=== PATIENT | female | born 1955 | race Two or more races ===

== ENCOUNTER 2021-01-22 08:47 | Outpatient (REF) | payer MEDICARE, SELFPAY ==
--- NOTE | ~2021-01-22 | MM_ITS ---
EXAMINATION: MM SCREENING DIGITAL BREAST TOMOSYNTHESIS, BILATERAL CLINICAL INFORMATION: Screening. Asymptomatic. The lifetime risk of breast cancer based on the Tyrer-Cuzick Model is 4%. COMPARISON: Outside mammography: 02/09/2019, 01/27/2018, 05/15/2016 ([facility]). TECHNIQUE: Digital breast tomosynthesis is performed in both the craniocaudal and mediolateral oblique views along with computer-aided detection (CAD). Synthesized 2D images are generated from the tomosynthesis. FINDINGS: There are scattered areas of fibroglandular density (ACR BI-RADS breast composition Category b). Breast tissue borders on predominantly fatty. Background stromal and fibroglandular densities are stable. There is no interval mass or architectural abnormality or abnormal calcifications. The axilla and skin contours are unremarkable. MM/MM tomosynthesis screening BI IMPRESSION: No mammographic evidence of malignancy. ASSESSMENT: BI-RADS 1: Negative RECOMMENDATION: Routine annual mammography screening. This patient's information was entered into a reminder system with a target due date for their next mammogram.
== END 2021-01-22 08:48 | disposition home or self-care (01) ==
LOC: HO.MAMMO 08:47
PROVIDERS: Visit Provider Internal Medicine
DX: Z12.31 Encounter for screening mammogram for malignant neoplasm of breast (principal)
CPT/HCPCS: 77063; 77067

== ENCOUNTER 2021-04-02 10:30 | Outpatient (REF) | payer MEDICARE, SELFPAY ==
--- NOTE | ~2021-04-02 | MM_ITS ---
EXAMINATION: BONE DENSITOMETRY CLINICAL INDICATION: Screening for osteoporosis. COMPARISON: None (current study represents initial baseline exam). TECHNIQUE: Using a [employer] DXA System (software version: 13.1) manufactured by [employer], dual-energy x-ray absorptiometry was performed of the lumbar spine and left hip. The images are of good technical quality. Summary results are attached. FINDINGS: AP SPINE L1-L4: BMD 1.035 g/cm2, Z-score -0.5, T-score -1.2, osteopenia. LEFT FEMUR, NECK: BMD 0.816 g/cm2, Z-score -0.7, T-score -1.6, osteopenia. LEFT FEMUR, TOTAL: BMD 0.893 g/cm2, Z-score -0.3, T-score -0.9, normal. IDENTIFIED RISK FACTORS: Menopause. HISTORY OF FRACTURE: None listed. MEDICATIONS: Calcium supplements or multivitamin, vitamin D. MM/XR DEXA axial skeleton IMPRESSION: 1. DIAGNOSIS: Osteopenia based on the lowest T-score value of -1.6 in the femoral neck applying World Health Organization criteria. 2. 10-YEAR FRACTURE RISK PREDICTION, FRAX: Major osteoporotic fracture (clinical spine, forearm, hip or shoulder) 4.9%. Hip fracture 0.6%. 3. Treatment Recommendations: NOF guidelines recommend consideration for treatment in postmenopausal women and men age 50 and older presenting with the following: -A hip or vertebral (clinical or morphometric) fracture. -T-score less than or equal to -2.5 at the femoral neck or spine after appropriate evaluation to exclude secondary causes. -Low bone mass at the hip or spine and a 10-year fracture probability by FRAX of greater than or equal to 3% for hip fracture or greater than or equal to 20% for major osteoporotic fracture based on the [place] adapted WHO algorithm. 4. Other Recommendations: All treatment decisions require clinical judgment and consideration of individual patient factors, including patient preferences, comorbidities, previous drug use, risk factors not captured in the FRAX model (e.g. frailty, falls, vitamin D deficiency, increased bone turnover, interval significant decline in bone density) and possible under or overestimation of fracture risk by FRAX. Additional medical evaluation for secondary cause of low bone mineral density may be appropriate. FUTURE SCAN RECOMMENDATION: People with diagnosed cases of osteoporosis or at high risk for fracture should have regular bone mineral density tests. For patients eligible for Medicare, routine testing is allowed once every 2 years. The testing frequency can be increased to one year for patients who have rapidly progressing disease, those who are receiving or discontinuing medical therapy to restore bone mass, or have additional risk factors.
== END 2021-04-02 10:31 | disposition home or self-care (01) ==
LOC: HO.MAMMO 10:30
PROVIDERS: PCP Internal Medicine; Visit Provider Internal Medicine
DX: Z13.820 Encounter for screening for osteoporosis (principal); M85.80 Other specified disorders of bone density and structure, unspecified site; Z78.0 Asymptomatic menopausal state; Z79.899 Other long term (current) drug therapy
CPT/HCPCS: 77080

== ENCOUNTER 2023-06-07 10:12 | Outpatient (REF) | payer MEDICARE, SELFPAY ==
[2023-06-09 21:13] LABS: TS Negative Control Passed; TS Panel A 0; TS Panel B 0; TS Positive Control Passed; TSpotTB Negative (Negative)
== END 2023-06-07 10:13 | disposition home or self-care (01) ==
LOC: HO.CHCLDS 10:12
PROVIDERS: Visit Provider Internal Medicine
DX: Z11.1 Encounter for screening for respiratory tuberculosis (principal)
CPT/HCPCS: 36415; 86481

== ENCOUNTER 2023-08-05 08:47 | Outpatient (REF) | payer MEDICARE, SELFPAY | END 2023-08-05 08:48 | disposition home or self-care (01) | LOC: HO.CHCLDS 08:47 | PROVIDERS: Visit Provider Internal Medicine | DX: I10 Essential (primary) hypertension (principal); E03.9 Hypothyroidism, unspecified; E78.2 Mixed hyperlipidemia | CPT/HCPCS: 36415; 80053; 80061; 83540; 84443; 85025 ==

== ENCOUNTER 2024-04-20 08:51 | Outpatient (REF) | payer MEDICARE, SELFPAY ==
[2024-04-20 16:16] LABS: Alanine Aminotransferase 14 U/L (0-31); Albumin Level 3.9 g/dL (3.5-5.0); Alkaline Phosphatase 130 U/L (39-117); Anion Gap 9 (12-20); Aspartate Amino Transferase 19 U/L (5-31); Bilirubin Total 0.6 mg/dL (0.0-1.0); Blood Urea Nitrogen 14 mg/dL (9-16); Calcium 9.9 mg/dL (8.4-10.2); Carbon Dioxide 28 mmol/L (22-29); Chloride 109 mmol/L (96-108); Cholesterol 105 mg/dL (<200); Estimated Glomerular Filt Rate > 60; Glucose Random 77 mg/dL (60-115); HDL Cholesterol 40 mg/dL (>40); LDL Cholesterol Calculated 48 mg/dL (<100); Potassium 4.3 mmol/L (3.3-5.1); Sodium 142 mmol/L (135-145); Total Protein 7.1 g/dL (6.5-8.0); Triglycerides 88 mg/dL (<150)
[2024-04-20 16:25] LABS: TSH reflex Free T4 4.68 uIU/mL (0.32-4.0)
[2024-04-20 17:34] LABS: Free T4 (Free Thyroxine) 0.96 ng/dL (0.71-1.85)
== END 2024-04-20 08:52 | disposition home or self-care (01) ==
LOC: HO.CHCLDS 08:51
PROVIDERS: Visit Provider Internal Medicine
DX: I10 Essential (primary) hypertension (principal); E03.9 Hypothyroidism, unspecified
CPT/HCPCS: 36415; 80053; 80061; 84439; 84443

== ENCOUNTER 2024-08-18 09:57 | Outpatient (REF) | payer MEDICARE, SELFPAY ==
[2024-08-18 14:47] LABS: Alanine Aminotransferase 18 U/L (0-31); Alkaline Phosphatase 135 U/L (39-117); Anion Gap 7 (12-20); Aspartate Amino Transferase 30 U/L (5-31); Bilirubin Total 0.5 mg/dL (0.0-1.0); Blood Urea Nitrogen 13 mg/dL (9-16); Calcium 9.2 mg/dL (8.4-10.2); Carbon Dioxide 30 mmol/L (22-29); Chloride 110 mmol/L (96-108); Estimated Glomerular Filt Rate > 60; Glucose Random 86 mg/dL (60-115); Potassium 4.2 mmol/L (3.3-5.1); Sodium 143 mmol/L (135-145); Total Protein 7.5 g/dL (6.5-8.0)
[2024-08-18 15:05] LABS: TSH reflex Free T4 2.44 uIU/mL (0.32-4.0); Vitamin D 25-OH Total 21.1 ng/mL (>30)
== END 2024-08-18 09:58 | disposition home or self-care (01) ==
LOC: HO.CHCLDS 09:57
PROVIDERS: Visit Provider Internal Medicine
DX: E03.9 Hypothyroidism, unspecified (principal); M85.88 Other specified disorders of bone density and structure, other site
CPT/HCPCS: 36415; 80053; 82306; 84443

== ENCOUNTER 2024-12-13 09:59 | Outpatient (REF) | payer MEDICARE, SELFPAY ==
--- OUTSIDE RECORDS SUMMARY | 2024-12-13 10:49 | XMS_ITS | Clinical Summary ---
Author Organization [email or web address] [facility] ity Address [address] [place] [address] Care Team Providers Care Page Designer Name Role Phone Unavailable Primary Care Provider Unavailabl e Social History Tobacco Use Types Packs/Day Years Used Date Smoking Tobacco: Never Assessed Comments Unknown Sex and Gender Information Value Date Recorded Sex Assigned at Not on file Legal Sex Female 1:18 PM EST Gender Identity Not on file Sexual Orientation Not on file Plan of Treatment Health Maintenance Due Date Last Done Comments DTaP,Tdap,and Td Vaccines (1 - Tdap) 1973 Pneumococcal Vaccine: 50+ Ye ars (1 of 1 - PCV) 2004 Zoster Vaccines (1 of 2) 2004 Colorectal Cancer Screening: Colonoscopy 06/30/2022 Depression Screening 06/30/2022 Falls Risk Assessment 06/30/2022 Hepatitis C Screening 06/30/2022 Osteoporosis Screening (Bone Density Screening) 06/30/2022 Social Influencers of Health Screening 06/30/2022 COVID-19 Vaccine ( - 2023-2 5 season) 2024 Breast Cancer Screening 03/18/2025 03/18/2023 Influenza Vaccine (Season Ended) 2025 RSV Immunization Adult Patie nts (1 - 1-dose 75+ series) 2029 HIB Vaccines Aged Out No longer eligi ble based on patient's age to complete this topic HPV Vaccines Aged Out No longer eligi ble based on patient's age to complete this topic Hepatitis A Vaccines Aged Out No long er eligible based on patient's age to complete this topic Hepatitis B Vaccines Aged Out No long er eligible based on patient's age to complete this topic IPV Vaccines Aged Out No longer eligi ble based on patient's age to complete this topic MMR Vaccines Aged Out No longer eligi ble based on patient's age to complete this topic Meningococcal ACWY Vaccine Aged Out N o longer eligible based on patient's age to complete this topic Meningococcal B Vaccine Aged Out No l onger eligible based on patient's age to complete this topic RSV Immunization Patients Un miquel 20 months Aged Out No longer eligible b ased on patient's age to complete this topic Varicella Vaccines Aged Out No longer eligible based on patient's age to complete this topic Procedures Procedure Name Priority Date/Time Associated Diagnosis Comments [facility] SCREENING DIGITAL Routine 03/18/2023 9:07 AM EDT Encounter for screening mammogram for malignant neoplasm of breast from Last 3 Months or Most Recently Relevant to Health Maintenance Results * KUMAR SCREENING DIGITAL (03/18/2023 9:07 AM EDT) Anatomical Region Laterality Modality Mammography 03/18/2023 7:56 AM EDT Narrative 03/18/2023 9:[address] [facility] Diagnostic Imaging Department [address] [place] [id number] Patient: ??ERENDIRA MEANS ?/Age/Sex: 1955 - 67 - F Unit#: ??[id number] ? Location/Status: ??SPDIMAM/REG CLI ? Mnemonic/Ordering Site: ??DIGSC/SPMAM Ordering Physician: ??SEAN ROWE [facility] Screening Digital - 03/18/23816 Report Status:Signed EXAM: [facility] Screening Digital EXAM DATE AND TIME: 03/18/2023 8:26 AM HISTORY: ??Routine screening mammogram COMPARISON: ??05/15/2016 02/09/2019 TECHNIQUE: Bilateral digital breast tomosynthesis was performed in the CC and MLO projections. Computer aided detection with [employer] 3D 3.1 was employed. TISSUE DENSITY: b. There are scattered areas of fibroglandular density. FINDINGS: No suspicious masses, grouped microcalcifications, or areas of architectural distortion are seen. The skin and vascularity are unremarkable. IMPRESSION: Stable mammographic appearance of the breasts. ??No evidence of malignancy is seen. A negative mammogram in the presence of a clinically suspicious palpable abnormality does not preclude the possibility of malignancy or alter the indications for biopsy. BI-RADS: ??Category 1: Negative RECOMMENDATION(S): 1: Routine screening mammogram BILATERAL in 1 year. Dictating Physician: ??CONRAD BRYSON MD Electronically Signed by: ??CONRAD BRYSON MD Dic Date/Time: ??03/18/23 09 Sign date/Time: ??03/18/23 0907 Procedure Note Conrad Bryson MD - 09/07/2023 [facility] Diagnostic Imaging Department [address] [place] [id number] Patient: ERENDIRA MEANSO.B./Age/Sex: 1955 - 67 - F Unit#: [id number] Location/Status: [facility]/REG CLI Mnemonic/Ordering Site: [facility] Ordering Physician: SEAN ROWE [facility] Screening Digital - 03/18/23 - 0817 Report Status:Signed EXAM: [facility] Screening Digital EXAM DATE AND TIME: 03/18/2023 8:26 AM HISTORY: Routine screening mammogram COMPARISON: 05/15/2016 02/09/2019 TECHNIQUE: Bilateral digital breast tomosynthesis was performed in the CCand MLO projections. Computer aided detection with [employer] 3D 3.1was employed. TISSUE DENSITY: b. There are scattered areas of fibroglandular density. FINDINGS: No suspicious masses, grouped microcalcifications, or areas ofarchitectural distortion are seen. The skin and vascularity are unremarkable. IMPRESSION: Stable mammographic appearance of the breasts. No evidence of malignancyis seen. A negative mammogram in the presence of a clinically suspicious palpable abnormality does not preclude the possibility of malignancy or alter the indications for biopsy. BI-RADS: Category 1: Negative RECOMMENDATION(S): 1: Routine screening mammogram BILATERAL in 1 year. Dictating Physician: CONRAD BRYSON MD Electronically Signed by: CONRAD BRYSON MD Dic Date/Time: 03/18/23 0906 Sign date/Time: 03/18/23 0907 us Sean Rowe MD IMG BI PROCEDURES Final R esult from Last 3 Months or Most Recently Relevant to Health Maintenance
[2024-12-13 14:57] LABS: MANUAL DIFF FLAG NO
[2024-12-13 15:03] LABS: Basophils Absolute Auto 0.1 X10*3/uL (0.0-0.2); Eosinophils Absolute Auto 0.2 X10*3/uL (0.0-0.4); Eosinophils Percent Auto 4.1 % (0-4); Hematocrit 40.1 % (37.0-47.0); Hemoglobin 12.4 g/dl (12.0-16.0); Imm Gran Abs Auto 0.01 X10*3/uL (0.00-0.03); Imm Gran Pct Auto 0.2 % (0.0-0.4); Lymphocytes Absolute Auto 1.5 X10*3/uL (1.2-4.9); Lymphocytes Percent Auto 28.2 % (20-40); Mean Corpuscular HGB Conc 30.9 g/dl (31.0-35.0); Mean Corpuscular Hemoglobin 29.1 pg (27.0-33.0); Mean Corpuscular Volume 94.1 fL (80.0-98.0); Mean Platelet Volume 11.5 fL (9.4-12.3); Monocytes Absolute Auto 0.4 X10*3/uL (0.1-1.2); Monocytes Percent Auto 7.8 % (2-11); Neutrophils Percent Auto 58.7 % (45-73); Platelet Count 215 X10*3/uL (160-400); Red Blood Count 4.26 X10*6/uL (4.20-5.50); Red Cell Distribution Width 13.4 % (11.0-16.0); White Blood Count 5.1 X10*3/uL (4.8-10.8)
[2024-12-13 15:31] LABS: Cholesterol 136 mg/dL (<200); HDL Cholesterol 51 mg/dL (>40); LDL Cholesterol Calculated 69 mg/dL (<100); Triglycerides 84 mg/dL (<150)
[2024-12-13 15:38] LABS: Vitamin D 25-OH Total 25.1 ng/mL (>30)
== END 2024-12-13 10:00 | disposition home or self-care (01) ==
LOC: HO.CHCLDS 09:59
PROVIDERS: Visit Provider Internal Medicine
DX: I10 Essential (primary) hypertension (principal)
CPT/HCPCS: 36415; 80061; 82306; 85025

== ENCOUNTER 2025-06-21 09:24 | Outpatient (REF) | payer MEDICARE, SELFPAY ==
--- OUTSIDE RECORDS SUMMARY | 2025-06-21 08:30 | XMS_ITS | Encounter Summary ---
Author Organization [employer] Address [address] [place] [address] [place] [address] Care Team Providers Care Yarn Rewinder Name Role Phone Uziel Renteria MD Primary Care Prov ider Reason for Referral * Imaging (Routine) - Authorized Specialty Diagnoses / Procedures Referred By Jose L braswell Referred To Contact Radiology Diagnoses Osteopenia of multiple sites Procedures BD DEXA Axial Uziel Renteria MD [address] [place] [address] Phone: tel: fax: [address] Phone: tel: fax: Referral ID Status Reason Start Date Expiration Date V isits Requested Visits Authorized [id number] Authorized 06/21/2025 06/21/2026 1 1 * Imaging (Routine) - Authorized Specialty Diagnoses / Procedures Referred By Jose L braswell Referred To Contact Radiology Diagnoses Encounter for screening mammogram for malignant neoplasm of breast Procedures BI Mammogram Screening Tomosynthesis Bilateral Uziel Renteria MD [address] [place] [address] Phone: tel: fax: [address] Phone: tel: fax: Referral ID Status Reason Start Date Expiration Date V isits Requested Visits Authorized [id number] Authorized 06/21/2025 06/21/2026 1 1 Reason for Visit * Reason Comments Follow-up Blood pressure/thyro id Encounter Details Date Type Department Care Team ([facility] st Contact Info) Description 06/21/2025 8:30 AM EST Office Visit [facility] [address] [place] [address] Uziel Renteria MD [address] [place] [address] Osteopenia of multiple sites (Primary Dx); Encounter for screening mammogram for malignant neoplasm of breast; Acquired hypothyroidism; Benign hypertension; Mixed hyperlipidemia; Encounter for immunization Social History Tobacco Use Types Packs/Day Years Used Date Smoking Tobacco: Former Cigarettes Q uit: 01/04/2009 Smokeless Tobacco: Never Depression Answer Date Recorded Patient Health Questionnaire-9 Score 0 01/05/2024 Patient Health Questionnaire-9 Score 0 01/05/2024 Last PHQ-9: Questionnaire Data Not on file 0 01/05/2024 Housing Stability Answer Date Recorded What is your housing situation today? I have sherryzeke mehta 06/14/[address] you li ve. Do you have problems with any of the following? None of the above 06/14/2025 Food Insecurity Answer Date Recorded Within the past 12 months, y ou worried that your food would run out before you got money to buy more: Never True 06/14/2025 Within the past 12 months,th e food you bought just didn't last and you didn't have enough money to get more: Never True Transportation Answer Date Recorded In the past 12 months, has l ack of transportation kept you from medical appts, meetings, work or from getting things needed for daily living? No 06/14/2025 Utilities Answer Date Recorded In the past 12 months, has t he electric, gas, oil or water company threatened to shut off services in your home? No 06/14/2025 Depression Answer Date Recorded Patient Health Questionnaire-2 Score 0 01/05/2024 Internet Access Answer Date Recorded Internet Access Q1 Yes 06/14/2025 Internet Access Q2 Not on file 06/14/2025 Comments Unknown Sex and Gender Information Value Date Recorded Sex Assigned at Female 06/01/2022 10:36 AM EDT Legal Sex Female 10:36 AM EDT Gender Identity Female 06/01/2022 10:36 AM EDT Sexual Orientation Straight 06/01/2022 10 :36 AM EDT documented as of this encounter Last Filed Vital Signs Vital Sign Reading Time Taken Comments Blood Pressure 136/74 06/21/2025 8:38 AM EST Pulse 52 06/21/2025 8:38 AM EST Temperature 36.4 C (97.6 F) 06/21/2025 8:38 AM EST Respiratory Rate 12 06/21/2025 8:38 AM EST Oxygen Saturation 98% 06/21/2025 8:38 AM EST Inhaled Oxygen Concentration - - Weight 91.6 kg (202 lb) 06/21/2025 8:38 AM EST Height 165.1 cm (5' 5 ) 06/21/2025 8:38 AM EST Body Mass Index 33.61 06/21/2025 8:38 AM EST documented in this encounter Progress Notes * Uziel Stern MD - 06/21/2025 8:30 AM EST Subjective Patient ID: Erendira Mullen is a 70 y.o. female who presents for Follow-up (Blood pressure/thyroid). Hypertension This is a chronic problem. The problem is controlled. Pertinent negatives include no chest pain, headaches, palpitations or shortness of breath. Identifiable causes of hypertension include a thyroid problem. Thyroid Problem Presents for initial visit. Patient reports no palpitations. Review of Systems Respiratory: Negative for shortness of breath. Cardiovascular: Negative for chest pain and palpitations. Neurological: Negative for headaches. Objective Physical Exam Assessment/Plan Problem List Items Addressed This Visit Benign hypertension Controlled, reviewed home results, have remained stable, no changes will be made, keep low sodium diet and exercise as tolerated, follow up in 3 months Relevant Orders CBC auto differential Comprehensive Metabolic Panel Lipid Panel, Standard Hyperlipidemia On statin therapy, no changes will be made Acquired hypothyroidism Clinically euthyroid, new labs will be ordered Relevant Orders TSH W/Reflex to FT4 Osteopenia of multiple sites - Primary Relevant Orders BD DEXA Axial Vitamin D, 25-Hydroxy, Total, Immunoassay Other Visit Diagnoses Encounter for screening mammogram for malignant neoplasm of breast Relevant Orders BI Mammogram Screening Tomosynthesis Bilateral documented in this encounter Miscellaneous Notes * Assessment & Plan Note - Uziel Stern MD - 06/21/2025 9:02 AM ESTAssociated Problem(s): Acquired hypothyroidism Clinically euthyroid, new labs will be ordered * Assessment & Plan Note - Uziel Stern MD - 06/21/2025 9:01 AM ESTAssociated Problem(s): Hyperlipidemia On statin therapy, no changes will be made * Assessment & Plan Note - Uziel Stern MD - 06/21/2025 9:01 AM ESTAssociated Problem(s): Benign hypertension Controlled, reviewed home results, have remained stable, no changes will be made, keep low sodium diet and exercise as tolerated, follow up in 3 months * Addendum Note - Jcarlos Fried MA - 06/21/2025 8:30 AM ESTAddended by: JCARLOS FRIED on: 06/21/2025 09:24 AM Modules accepted: Orders documented in this encounter Plan of Treatment Scheduled Orders Name Type Priority Associated Diagnoses Orde r Schedule BI Mammogram Screening Tomosynthesis Bilateral Imaging Routine Encounter for screening mammogram for malignant neoplasm of breast Expected: 06/21/2025, Expires: 08/21/2026 BD DEXA Axial Imaging Routine Osteopenia of multiple sites Expected: 06/21/2025, Expires: 06/21/2026 CBC auto differential Lab Routine Benign hypertension Expected: 06/21/2025 (Approximate), Expires: 06/21/2026 Comprehensive Metabolic Panel Lab Routine Benign hypertension Expected: 06/21/2025 (Approximate), Expires: 06/21/2026 Lipid Panel, Standard Lab Routine Benign hypertension Expected: 06/21/2025 (Approximate), Expires: 06/21/2026 TSH W/Reflex to FT4 Lab Routine Acquired hypothyroidism Expected: 06/21/2025 (Approximate), Expires: 06/21/2026 Vitamin D, 25-Hydroxy, Total, Immunoassay Lab Routine Osteopenia of multiple sites Expected: 06/21/2025 (Approximate), Expires: 06/21/2026 documented as of this encounter Visit Diagnoses Diagnosis Osteopenia of multiple sites- Primary Encounter for screening mammogram for malignant neoplasm of breast Acquired hypothyroidism Unspecified hypothyroidism Benign hypertension Essential hypertension, benign Mixed hyperlipidemia Encounter for immunization documented in this encounter Additional Health Concerns Assessment Noted Time PHQ-9 Depression Total Score: 0 01/05/20 24 9:42 AM EDT documented as of this encounter Care Teams Yarn Rewinder Relationship Specialty Start Date End Date Uziel Renteria MD [address] [place] [id number] PCP - General Internal Medicine 12/14/19 documented as of this encounter
--- OUTSIDE RECORDS SUMMARY | 2025-06-21 12:36 | XMS_ITS | Clinical Summary ---
Author Organization [facility] Address [address] [facility] 7[address] [place] [address] Care Team Providers Care Building Attendant Name Role Phone Uziel Renteria MD Primary Care Prov ider Allergies No known active allergies Medications Calcium Carb-Cholecalcifer ol (Calcium + Vitamin D3) 600-10 MG-MCG tabletIndications: Osteopenia of lumbar spine Take 1 tablet by mouth Once per day. 90 tablet 3 5 Active lisinopril 20 MG tabletIndications: Benign hypertension Take 1 tablet (20 mg) by mouth Once per day. 90 tablet 3 5 Active levothyroxine (Synthroid, Levoxyl) 125 MCG tabletIndications: Acquired hypothyroidism TAKE 1 TABLET BY MOUTH EVERY DAY 90 tablet 3 5 Active cholecalciferol (Vitamin D-3) 25 MCG (1000 UT) capsule Take 1 capsule (25 mcg) by mouth Once per day. 90 capsule 3 5 026 Active fluticasone (Flonase) 50 MCG/ACT nasal spray Administer 1-2 sprays into each nostril Once per day. Shake gently. Before first use, prime pump. After use, clean tip and replace cap. 16 g 2 5 026 Active atorvastatin (Lipitor) 40 MG tabletIndications: Mixed hyperlipidemia TAKE ONE TABLET DAILY 90 tablet 1 5 Active Active Problems Problem Noted Date Diagnosed Date Ear fullness, left 12/18/2024 Assessment & Plan (01/05/2025 9:41 AM EDT): Patient tried flonase as indicated, no improvement in symptoms, will refer to ENT for evaluation Assessment & Plan (12/18/2024 11:33 AM EDT): Examination was unremarkable, no sign of infection, she feel like having water inside, will prescribe flonase follow up in 2 weeks Screening for colon cancer 10/20/2022 Assessment & Plan (10/20/2022 8:44 AM EDT): Done in 01/2015 due in 10 years 2024 Osteopenia of multiple sites 10/20/2022 Assessment & Plan (10/20/2022 9:45 AM EDT): Continue vitamin d and calcium replacement, new dexa scan due for end of 2022 Benign hypertension 07/28/2022 Assessment & Plan (06/21/2025 9:01 AM EST): Controlled, reviewed home results, have remained stable, no changes will be made, keep low sodium diet and exercise as tolerated, follow up in 3 months Assessment & Plan (12/18/2024 11:32 AM EDT): Mos likely she has WCS, repeated during visit and was WNL. Reviewed home results and they were stable, no changes will be made Assessment & Plan (11/27/2024 10:52 AM EDT): Controlled, keep low sodium diet and exercise as tolerated, keep bp log, target <140/90, no changes will be made Assessment & Plan (08/25/2024 12:44 PM EST): Controlled, home bp reading have been stable <140/90, continue same treatment, new labs will be ordered Assessment & Plan (04/19/2024 1:21 PM EDT): Controlled, continue low sodium diet and exercise as tolerated, keep bp log, new labs will be ordered Assessment & Plan (01/05/2024 9:33 AM EDT): Controlled, continue low sodium diet and exercise as tolerated, keep bp log target <140/90 Assessment & Plan (12/09/2023 12:36 AM EDT): Controlled, no changes will be made to therapy, continue low sodium diet, new labs will be ordered for guidance of therapy Assessment & Plan (10/20/2022 9:45 AM EDT): Controlled, continue lisinopril 20mg, no changes will be made, reinforced low sodium diet and exercise as tolerated, follow up in 3 months Assessment & Plan (08/04/2022 1:56 PM EST): Controlled, no changes will be made, reinforced diet changes, will place order for new labs Depressive disorder 07/28/2022 Gastroesophageal reflux disease with esophagitis 07/28/2022 History of myocardial infarction 07/28/2022 Hyperlipidemia 07/28/2022 Assessment & Plan (06/21/2025 9:01 AM EST): On statin therapy, no changes will be made Assessment & Plan (08/25/2024 12:45 PM EST): On statin therapy, no side effects reported, new labs sent for guidance Assessment & Plan (12/09/2023 12:37 AM EDT): On atorvastatin, new las ordered Assessment & Plan (10/20/2022 9:47 AM EDT): On atorvastatin 40mg, reinforced diet/lifestyle changes, continue same treatment Assessment & Plan (08/04/2022 1:57 PM EST): On atorvastatin new order will be placed for guidance of therapy Acquired hypothyroidism 07/28/2022 Assessment & Plan (06/21/2025 9:02 AM EST): Clinically euthyroid, new labs will be ordered Assessment & Plan (11/27/2024 10:52 AM EDT): Clinically and chemically euthyroid, continue levothyroxine, follow up in 3 months Assessment & Plan (08/25/2024 12:44 PM EST): Clinically euthyroid, will order new labs for guidance of therapy Assessment & Plan (04/19/2024 1:28 PM EDT): Clinically euthyroid, will order new labs for guidance Assessment & Plan (01/05/2024 9:33 AM EDT): Clinically and chemically euthyroid Assessment & Plan (12/09/2023 12:37 AM EDT): Clinically euthyroid, new tsh will be ordered for guidance of therapy Assessment & Plan (10/20/2022 9:46 AM EDT): Controlled, she is clinically/chemically euthyroid, continue same treatment Assessment & Plan (08/04/2022 1:56 PM EST): Will order new labs for guidance of therapy Polyp of colon 07/28/2022 Overview (07/28/2022): Patient had confirmed hyperplastic polyps, but does not need repeat colonscopy until 2015needs colonscopy 2009 - hyperplastic polyp Vitamin D deficiency 07/28/2022 Assessment & Plan (11/27/2024 11:06 AM EDT): New labs will be ordered for guidance of therapy Assessment & Plan (08/04/2022 1:57 PM EST): Will order new labs for guidance of therapy Encounters Date Type Department Care Team Description 06/21/2025 8:30 AM EST Office Visit [facility] [address] [facility] [place] [address] Uziel Renteria MD Osteopenia of multiple sites (Primary Dx); Encounter for screening mammogram for malignant neoplasm of breast; Acquired hypothyroidism; Benign hypertension; Mixed hyperlipidemia; Encounter for immunization 06/21/2025 Travel 06/20/[address] [facility] [address] [place] [address] Uziel Renteria MD chart prep 06/14/[address] [facility] [address] [place] [address] Uziel Renteria MD Pre-visit Planning (SDOH negative, Tobacco screening negative. ) 04/21/[address] [facility] [address] [place] [address] Uziel Renteria MD Mixed hyperlipidemia from Last 3 Months Immunizations Immunization Administration Dates Next Due Influenza High-dose Quadriva lent Preservative Free 07/12/2023,05/31/2020 Influenza Whole 08/28/2008 Influenza injectable quadriv alent IIV4 with preservative 06/08/2019 Influenza injectable quadriv alent preservative free 07/14/2021 Influenza, High Dose Seasona l, Preservative Free 06/21/2025 Influenza, IIV3, injectable 08/08/2018,1 08/03/2016,05/18/2016,05/29,05/17/2012,09/01/2011,06/17/2010 Pneumococcal Conjugate PCV 20 07/12/2023 Pneumococcal Polysaccharide PPSV23 09/06/2019, Tdap 09/06/2019,02/17/2008 Zoster, Recombinant 03/28/2020,09/06/2019 Zoster, live 01/20/2016 Social History Tobacco Use Types Packs/Day Years Used Date Smoking Tobacco: Former Cigarettes Q uit: 01/04/2009 Smokeless Tobacco: Never Tobacco Cessation:Counseling Given: Not Answered Depression Answer Date Recorded Patient Health Questionnaire-9 Score 0 01/05/2024 Patient Health Questionnaire-9 Score 0 01/05/2024 Last PHQ-9: Questionnaire Data Not on file 0 01/05/2024 Housing Stability Answer Date Recorded What is your housing situation today? I have sherry mehta 06/14/[address] you [...] Orientation Straight 06/01/2022 10 :36 AM EDT Last Filed Vital Signs Vital Sign Reading [...] Mass Index 33.61 06/21/2025 8:38 AM EST Plan of Treatment Health Maintenance Due Date Last Done Comments CT Colonography 1954 Dental Oral Exam 1954 Dental Prophylaxis 1954 Dental X-Ray: Bitewings 1954 Dental X-Ray: Full Mouth 1954 FIT DNA/Cologuard 1954 FIT 1954 FOBT 1954 Sigmoidoscopy 1954 Mammogram 04/02/2023 04/02/2021, 01/22/2021 Depression Screening 01/04/2025 01/05/2024, 01/05/20 24 COVID-19 Vaccine ( season) 2025 11/28/2020 Alcohol/Substance Use Screening 08/18/2025 08/18/2024 SDOH Screening 06/14/2026 06/14/2025 Tobacco Screening 06/14/2026 06/14/2025 Colonoscopy 02/26/2029 02/26/2019 Colorectal Cancer Screening 02/26/2029 RSV Patients and Patients Aged 60 years or older (1 - 1-dose 75+ series) 2029 DTaP/Tdap/Td Vaccines (3 - Td or Tdap) 09/06/2029 09/06/2019, 02/17/2008 Lipid Panel 12/13/2029 12/13/2024, 04/02, 08/05/2023, Additional history exists Hepatitis C Screening Completed 09/06/2019 Zoster Vaccines Completed 03/28/2020, 12/2019, 01/20/2016 Pneumococcal Vaccine: 50+ Years Completed 07/12/2023, 09/06/2019, 06/18/2009 Influenza Vaccine Completed 06/21/2025, , 07/14/2021, Additional history exists HIB Vaccines Aged Out No longer eligi [...] patient's age to complete this topic Meningococcal Vaccine Aged Out No rachid cheyenne eligible based on patient's age to complete this topic RSV under 20 months Aged Out No longe r eligible based on patient's age to complete this topic Rotavirus Vaccines Aged Out No longer eligible based on patient's age to complete this topic Procedures Procedure Name Priority Date/Time Associated Diagnosis Comments LIPID PANEL, STANDARD Routine 12/13/2024 10:00 AM EDT Benign hypertension MAMMOGRAM GENERIC Routine 04/02/2021 11: 00 AM EDT ZZZ HISTORICAL HEPATITIS C ANTIBODY RFLX Routine 09/06/2019 11:17 AM EST HM COLONOSCOPY Routine 02/26/2019 from Last 3 Months or Most Recently Relevant to Health Maintenance Results * Lipid Panel, Standard (12/13/2024 10:00 AM EDT) Triglycerides 84 <150 mg/dL [facility] Comment:Desirable Triglyceri de: less than 150 mg/dLBorderline High Triglyceride 150-199 mg/dLHigh Triglyceride: 200-499 mg/dLVery High Triglyceride: greater than or equal to 5OO mg/dL Cholesterol 136 <200 mg/dL [facility] Comment:Desirable Cholestero l: less than 200 mg/dLBorderline High Cholesterol: 200-239 mg/dLHigh Cholesterol: greater than 239 mg/dL LDL Cholesterol Calculated 69 <100 mg/dL [facility] Comment:Desirable LDL: less than 100 mg/dLNear Optimal/Above Optimal LDL: 110- 129 mg/dLBorderline High LDL: 130-159 mg/dLHigh LDL: 160-189 mg/dLVery High LDL: greater than or equal to 190 mg/dL HDL Cholesterol 51 >40 mg/dL [facility] Comment:Desirable HDL: great er than 40 mg/dL Note: This HDL assay may give artificially low results in patients with liver disease. Blood Venous blood specimen / Unknown 12/13/2024 10:00 AM EDT 12/13/2024 2:49 PM EDT us Uziel Stern MD LAB BLOOD ORDERABL ES Final Result [facility] [address] [place] [address] [phone] * Mammography Report 1 (04/02/2021 11:00 AM EDT) Anatomical Region Laterality Modality Breast Bilateral Mammography 04/02/2021 11:0 0 AM EDT Narrative 04/03/2021 10:44 AM EDT Refer to the Notes tab for result details [facility] Procedure: Mammography Report 1 Procedure Note Provider, MD Stephen - 10/25/2022 Refer to the Notes tab for result details [facility] Procedure: Mammography Report 1 Uziel Stern MD IMG BI PROCEDURES Final Result * HEPATITIS C ANTIBODY RFLX (09/06/2019 11:17 AM EST) HEPATITIS C ANTIBODY NONREACTIVE NONREACTIVE [facility] Comment: Antibodies to HCV not detected; does not exclude early acute HCV infection. 09/06/2019 11:1 7 AM EST Historical Provider HISTORICAL/NON ORDERABLE LABS Final Result Performing Organization Address [facility] Co de Phone Number [facility] Critical access hospital [facility] [address] * Hm Colonoscopy (02/26/2019) Colonoscopy Normal Normal Narrative Nancy Zheng - 02/26/2019 Repeat in 10 years Historical Provider HEALTH MAINTENANCE Final Result from Last 3 Months or Most Recently Relevant to Health Maintenance Insurance [id number] [place] [id number] DENTAL - [facility] Care Teams Building Attendant Relationship Specialty Start Date End Date Uziel Renteria MD [address] [place] [phone] PCP - General Internal Medicine 12/14/19
--- OUTSIDE RECORDS SUMMARY | 2025-06-21 12:37 | XMS_ITS | Encounter Summary ---
Author Organization [employer] Address [address] [facility] [address] [place] [address] Care Team Providers Care Product Manager Name Role Phone Uziel Renteria MD Primary Care Prov ider Encounter Details Date Type Department Care Team (Late st Contact Info) Description 06/20/2023 Abstract [facility] [address] [place] [address] Nancy Zheng Social History Tobacco Use Types Packs/Day Years Used Date Smoking Tobacco: Never Assessed Depression Answer Date Recorded Patient Health Questionnaire-9 Score 0 08/04/2022 Housing Stability Answer Date Recorded What is your housing situation today? I have sherry tyson 05/28/[address] you li ve. Do you have problems with any of the following? None of the above 05/28/2023 Food Insecurity Answer Date Recorded Within the past 12 months, y ou worried that your food would run out before you got money to buy more: Never True 05/28/2023 Within the past 12 months,th e food you bought just didn't last and you didn't have enough money to get more: Never True Transportation Answer Date Recorded In the past 12 months, has l ack of transportation kept you from medical appts, meetings, work or from getting things needed for daily living? No 05/28/2023 Utilities Answer Date Recorded In the past 12 months, has t he electric, gas, oil or water company threatened to shut off services in your home? No 05/28/2023 Depression Answer Date Recorded Patient Health Questionnaire-2 Score 0 08/04/2022 Comments Unknown Sex and Gender Information Value Date Recorded Sex Assigned at Female 06/01/2022 10:36 AM EDT Legal Sex Female 10:36 AM EDT Gender Identity Female 06/01/2022 10:36 AM EDT Sexual Orientation Straight 06/01/2022 10 :36 AM EDT documented as of this encounter Plan of Treatment Not on file documented as of this encounter Procedures Procedure Name Priority Date/Time Associated Diagnosis Comments COLONOSCOPY Routine 02/26/2019 documented in this encounter Results * Hm Colonoscopy (02/26/2019) Colonoscopy Normal Normal Narrative Nancy Zheng - 02/26/2019 Repeat in 10 years us Historical Provider HEALTH MAINTENANCE Final Result documented in this encounter Visit Diagnoses Not on filedocumented in this encounter Additional Health Concerns Assessment Noted Time PHQ-9 Depression Total Score: 0 08/04/19 23 1:34 PM EST documented as of this encounter Care Teams Product Manager Relationship Specialty Start Date End Date SeamanUziel Willis MD [address] [place] [phone] PCP - General Internal Medicine 12/14/19 documented as of this encounter
--- OUTSIDE RECORDS SUMMARY | 2025-06-21 12:37 | XMS_ITS | Encounter Summary ---
Author Organization [employer] Address [address] [facility] [address] [place] [address] Care Team Providers Care Clinical Staff Educator Name Role Phone Uziel Renteria MD Primary Care Prov ider Encounter Details Date Type Department Care Team (Latest Contact Info) Description 06/21/2025 Travel Social History Tobacco Use Types Packs/Day Years [...] on file documented as of this encounter Visit Diagnoses Not on filedocumented in this encounter Additional Health Concerns Assessment Noted Time PHQ-9 Depression Total Score: 0 01/05/20 24 9:42 AM EDT documented as of this encounter Care Teams Clinical Staff Educator Relationship Specialty Start Date End Date Uziel Renteria MD [address] [place] [phone] PCP - General Internal Medicine 12/14/19 documented as of this encounter
--- OUTSIDE RECORDS SUMMARY | 2025-06-21 12:37 | XMS_ITS | Encounter Summary ---
Author Organization [employer] Address [address] [facility] 7 [place] [address] Care Team Providers Care Senior Bioinformatics Scientist Name Role Phone Uziel Renteria MD Primary Care Prov ider Reason for Visit * Reason Onset Date Comments chart prep 06/20/2025 Encounter Details Date Type Department Care Team ([facility] st Contact Info) Description 06/20/[address] [facility] [address] [place], [place] [phone] Uziel Renteria MD [address] [place] [address] chart prep Social History Tobacco Use Types Packs/Day Years [...] AM EDT documented as of this encounter Miscellaneous Notes * Telephone Encounter - Fern Fried MA - 06/20/2025 1:48 PM EST Chart Prep Labs: done Images: done Referrals: appointment pending Vaccines due: Covid and Flu Screenings: mammogram Overdue care gaps: PHQ-9 documented in this encounter Plan of Treatment Not on file documented as of this encounter Visit Diagnoses Not on filedocumented in this encounter Additional Health Concerns Assessment Noted Time PHQ-9 Depression Total Score: 0 01/05/20 24 9:42 AM EDT documented as of this encounter Care Teams Senior Bioinformatics Scientist Relationship Specialty Start Date End Date Uziel Renteria MD [address] [place] [id number] PCP - General Internal Medicine 12/14/19 documented as of this encounter
--- OUTSIDE RECORDS SUMMARY | 2025-06-21 12:37 | XMS_ITS | Encounter Summary ---
Author Organization [employer] Address [address] [facility] 7[address] [place] [address] Care Team Providers Care Brewing Director Name Role Phone Uziel Renteria MD Primary Care Prov ider Encounter Details Date Type Department Care Team (Late st Contact Info) Description 08/22/2024 Orders Only [facility] [address] [place] [address] ProviderStephen MD Social History Tobacco Use Types Packs/Day Years Used Date Smoking Tobacco: Former Cigarettes Q uit: 01/04/2009 Smokeless Tobacco: Never Depression Answer Date Recorded Patient Health Questionnaire-9 Score 0 01/05/2024 Patient Health Questionnaire-9 Score 0 01/05/2024 Last PHQ-9: Questionnaire Data Not on file 0 01/05/2024 Housing Stability Answer Date Recorded What is your housing situation today? I have sherry mehta 01/05/[address] you li ve. Do you have problems with any of the following? None of the above 01/05/2024 Food Insecurity Answer Date Recorded Within the past 12 months, y ou worried that your food would run out before you got money to buy more: Never True 01/05/2024 Within the past 12 months,th e food you bought just didn't last and you didn't have enough money to get more: Never True 12/2023 Transportation Answer Date Recorded In the past 12 months, has l ack of transportation kept you from medical appts, meetings, work or from getting things needed for daily living? No 01/05/2024 Utilities Answer Date Recorded In the past 12 months, has t he electric, gas, oil or water company threatened to shut off services in your home? No 01/05/2024 Depression Answer Date Recorded Patient Health Questionnaire-2 Score 0 01/05/2024 Comments Unknown Sex and Gender Information Value Date Recorded Sex Assigned at Female 06/01/2022 10:36 AM EDT Legal Sex Female 10:36 AM EDT Gender Identity Female 06/01/2022 10:36 AM EDT Sexual Orientation Straight 06/01/2022 10 :36 AM EDT documented as of this encounter Plan of Treatment Not on file documented as of this encounter Procedures Procedure Name Priority Date/Time Associated Diagnosis Comments ECG 12-LEAD Routine 08/18/2024 1:24 PM EST documented in this encounter Results * ECG 12 lead (08/18/2024 1:24 PM EST) us Historical Provider ECG ORDERABLES Final Res ult documented in this encounter Visit Diagnoses Not on filedocumented in this encounter Additional Health Concerns Assessment Noted Time PHQ-9 Depression Total Score: 0 01/05/20 24 9:42 AM EDT documented as of this encounter Care Teams Brewing Director Relationship Specialty Start Date End Date Uziel Renteria MD [address] [place] [phone] PCP - General Internal Medicine 12/14/19 documented as of this encounter
[2025-06-21 14:06] LABS: MANUAL DIFF FLAG NO
[2025-06-21 14:17] LABS: Hematocrit 40.4 % (37.0-47.0); Hemoglobin 12.4 g/dl (12.0-16.0); Imm Gran Abs Auto 0.02 X10*3/uL (0.00-0.03); Imm Gran Pct Auto 0.4 % (0.0-0.4); Lymphocytes Absolute Auto 1.2 X10*3/uL (1.2-4.9); Mean Corpuscular HGB Conc 30.7 g/dl (31.0-35.0); Mean Corpuscular Hemoglobin 28.8 pg (27.0-33.0); Mean Corpuscular Volume 94.0 fL (80.0-98.0); NRBC Abs Auto 0.000 X10*3/uL (0.0-0.012); NRBC Pct Auto 0.0 /100WBC (0.0-0.2); Platelet Count 205 X10*3/uL (160-400); Red Blood Count 4.30 X10*6/uL (4.20-5.50); White Blood Count 5.3 X10*3/uL (4.8-10.8)
[2025-06-21 14:43] LABS: Alanine Aminotransferase 18 U/L (0-31); Albumin Level 4.3 g/dL (3.5-5.0); Alkaline Phosphatase 142 U/L (39-117); Anion Gap 9 (12-20); Aspartate Amino Transferase 37 U/L (5-31); Blood Urea Nitrogen 16 mg/dL (9-16); Calcium 9.5 mg/dL (8.4-10.2); Carbon Dioxide 28 mmol/L (22-29); Chloride 110 mmol/L (96-108); Cholesterol 107 mg/dL (<200); Estimated Glomerular Filt Rate > 60; HDL Cholesterol 46 mg/dL (>40); Potassium 4.4 mmol/L (3.3-5.1); Sodium 143 mmol/L (135-145); Total Protein 7.3 g/dL (6.5-8.0); Triglycerides 67 mg/dL (<150)
== END 2025-06-21 09:25 | disposition home or self-care (01) ==
LOC: HO.CHCLDS 09:24
PROVIDERS: Visit Provider Internal Medicine
DX: I10 Essential (primary) hypertension (principal); E03.9 Hypothyroidism, unspecified; M85.89 Other specified disorders of bone density and structure, multiple sites
CPT/HCPCS: 36415; 80053; 80061; 82306; 84443; 85025